=== PATIENT | male | born 1950 | race Caucasian/White ===

== ENCOUNTER 2019-06-29 10:36 | Observation (INO) | payer MEDICARE ==
[2019-06-23 11:24] LABS: CLARITY,URINE CLEAR (Clear); COLOR,URINE YELLOW (Yellow); GLUCOSE, URINE NEGATIVE (Neg); KETONES,URINE NEGATIVE (Neg); LEUKOCYTE ESTERASE ,URINE NEGATIVE (Neg); NITRITES, URINE NEGATIVE (Neg); OCCULT BLOOD,URINE NEGATIVE (Neg); PH,URINE 5.5 (4.8-8.0); PROTEIN,URINE NEGATIVE (Neg); UA COLLECTION TYPE CLN CATCH MIDSTREAM; UROBILINOGEN,URINE 0.2 E.U/dL (0.2-1.0)
[2019-06-23 11:26] LABS: BASOPHILS % (AUTO) 0.6 % (0-1); EOSINOPHILS # (AUTO) 0.1 X10'3 (0-0.9); EOSINOPHILS % (AUTO) 1.9 % (0-6); LYMPHOCYTES # (AUTO) 1.4 X10'3 (1.1-4.8); MEAN CORPUSCULAR HEMOGLOBIN 31.8 PG (27.0-31.0); MEAN CORPUSCULAR HGB CONC 33.5 g/dL (33.0-36.5); MEAN CORPUSCULAR VOLUME 94.7 FL (78-98); MEAN PLATELET VOLUME 7.6 FL (7.4-10.4); MONOCYTES # (AUTO) 0.7 X10'3 (0-0.9); MONOCYTES % (AUTO) 8.8 % (2-12); NEUTROPHILS # (AUTO) 5.5 X10'3 (1.8-7.7); NEUTROPHILS % (AUTO) 70.7 % (42-75); PRE OP HEMATOCRIT 45.2 % (42.0-52.0); PRE OP HEMOGLOBIN 15.2 g/dL (14.0-17.9); PRE OP PLATELET COUNT 251 X10'3 (140-440); RED BLOOD COUNT 4.77 X10'6 (4.70-6.10); RED CELL DISTRIBUTION WIDTH 14.3 % (11.5-14.5)
[2019-06-23 11:34] LABS: PARTIAL THROMBOPLASTIN TIME 29 SECONDS (22-32); PRE OP PROTIME 10.2 SECONDS (9.0-12.0)
[2019-06-23 11:37] LABS: ALBUMIN 3.3 G/DL (3.4-5.0); ALBUMIN/GLOBULIN RATIO 0.8 (1.1-1.5); ALKALINE PHOSPHATASE 70 IU/L (46-116); BLOOD UREA NITROGEN 19 MG/DL (7-18); BUN/CREATININE RATIO 17.8 (5.4-32.0); CALCIUM 8.7 MG/DL (8.5-10.1); CHLORIDE 105 MMOL/L (99-107); CREATININE 1.07 MG/DL (0.60-1.10); PRE OP ALT 25 U/L (30-65); PRE OP ANION GAP 7 (8-16); PRE OP AST 24 U/L (10-37); PRE OP BILIRUB, TOTAL 0.4 MG/DL (0.0-1.0); PRE OP GLUCOSE 92 MG/DL (70-104); PRE OP POTASSIUM 3.9 MMOL/L (3.4-5.1); PRE OP SODIUM 139 MMOL/L (135-145); TOTAL CARBON DIOXIDE 27.5 MMOL/L (24-32); TOTAL PROTEIN 7.2 G/DL (6.4-8.2); eGFR 69 ML/MIN
[~2019-06-29] VITALS: Ht 180.3 cm; Wt 79.7 kg
[2019-06-29] VITALS (26 sets, daily range): BP systolic 104–151; BP diastolic 60–90
[~2019-06-29 10:36] MED LIST: ALBU2.5V12 NEB; BUDE10.2 INH; CETI10TA18 PO; FLUT16SP11 BOTHNARES; GABA-532 PO; GENTAMICIN IV ONE; NORMAL SALINE IV ONE; OMEP40CA13 PO; albuterol 2.5 MG/3 ML nebule NEB ONE; clindamycin-Cleocin 900mg/D5W 50 ML IV ONE; famotidine 20mg tablet PO ONE; ringers solution, lacted 1,000 ML IV SCH
[2019-06-29] MEDS ORDERED: BUPIVAcaine/PF 2.5 mg/ml (0.25%) 30ml vial ONE ×2 (13:45→16:03)
[2019-06-29] MEDS ORDERED: clindamycin phosphate 150mg/ml inj. ONE (13:47)
[2019-06-29] MEDS ORDERED: sevoflurane 250ml liquid IH ONE (14:50)
[2019-06-29] MEDS ORDERED: fentaNYL/PF 50MCG/1 ML 2ML syringe ONE (14:58)
[2019-06-29] MEDS ORDERED: midazolam 2 mg/2 ml injection ONE (15:03)
[2019-06-29] MEDS ORDERED: ringers solution, lacted 1,000 ML IV SCH (15:08)
[2019-06-29] MEDS ORDERED: morphine 4 MG/ML inj SYRINge IV PRN (15:10)
[2019-06-29] MEDS ORDERED: acetaminophen 1,000mg/100ml IV 100 ML IV PRN (15:10)
[2019-06-29] MEDS ORDERED: ondansetron/PF 4mg/2ml inj IV PRN ×2 (15:10→20:20)
[2019-06-29] MEDS ORDERED: meperidine/PF 25mg/ml syringe IV PRN ×2 (15:10)
[2019-06-29] MEDS ORDERED: morphine 2 MG/ML inj. syringe IV PRN (15:10)
[2019-06-29] MEDS ORDERED: labetalol 20mg/4ml (5mg/ml) syringe IV PRN (15:10)
[2019-06-29] MEDS ORDERED: proCHLORperazine 10 MG/2 ml inj IV PRN (15:10)
[2019-06-29] MEDS ORDERED: hydrALAZINE 20mg/ml inj. IV PRN (15:10)
[2019-06-29] MEDS ORDERED: propofol inj 20 ML IV ONE (15:23)
[2019-06-29] MEDS ORDERED: dexamethasone sod phosphate 4mg/ml inj. ONE (15:23)
[2019-06-29] MEDS ORDERED: LIDOcaine 2% (20mg/ml) 5ml vial ONE (15:23)
[2019-06-29] MEDS ORDERED: ondansetron/PF 4mg/2ml inj ONE (15:23)
[2019-06-29] MEDS ORDERED: rocuronium 10mg/ml inj IV ONE (15:23)
[2019-06-29] MEDS ORDERED: morphine 10mg/ml inj. ONE (15:58)
[2019-06-29] MEDS ORDERED: ePHEDrine 50MG/ML INJ. ONE (15:59)
[2019-06-29] MEDS ORDERED: ketorolac trometh. 30mg/ml inj. ONE (15:59)
[2019-06-29] MEDS ORDERED: neostigmine methylsulfate 1 MG/ML 10ml vial ONE (16:10)
[2019-06-29] MEDS ORDERED: glycopyrrolate 0.2mg/ml inj ONE (16:10)
--- NOTE | 2019-06-29 16:19 | NUR ---
Received from OR via [facility] , accompanied by Anesthesiologist DAVID and report given by Anesthesiolgist. PATIENT WITH 20G PIV IN LEFT UE RUNNING LR AT 100. 10L MASK ON WITH 100% SATURATIONS. VS. 4 ABDOMINAL LAP SITES AND BANDAIDS PRESENT- ALL CDI. WILL CONTINUE TO ASSESS. Addendum: 06/29/19 at 1625 by Eduard Myers RN, RN Amended: Links added.
[2019-06-29] MEDS: meperidine/PF 25mg/ml syringe IV PRN ×2 (16:36→17:41)
[2019-06-29] MEDS ORDERED: albuterol 2.5 MG/3 ML nebule NEB ONE (16:50)
--- NOTE | 2019-06-29 19:45 | NUR ---
Patient in room . I have received report from ROSEANN Chapa and had the opportunity to ask questions and assume patient care.
[2019-06-29] MEDS ORDERED: albuterol 2.5 MG/3 ML nebule NEB PRN (19:50)
[2019-06-29] MEDS: budesonide 0.5mg/2ml UD nebule IH SCH (20:00)
[2019-06-29] MEDS ORDERED: HYDROcodone/acetaminophen 10/325mg tab PO PRN (20:20)
[2019-06-29] MEDS ORDERED: albumin (Human) 5% 250ml 250 ML IV ONE ×3 (20:20)
--- NOTE | 2019-06-29 20:49 | NUR ---
Patient has met criteria for transfer to floor. Patient vss. Pain at a tolerable level. Transferred via bed to room where they were hooked to vitals and RN notified patient has arrived. Bed low, call light within reach, 2-3 rails up, vss, belongings placed in room. Care turned over to ROSEANN DE GUZMAN. PHONE, READERS AND SHORTS WITH SLIPPERS. Addendum: 06/29/19 at 2101 by Eduard Cao - ROSEANN WHITFIELD Amended: Links added.
[2019-06-29] MEDS: potassium CL 20mEq in D5-1/2NS 1,000 ML IV SCH (20:55)
[2019-06-29] MEDS ORDERED: pantoprazole 40mg Tablet.DR PO SCH (21:00)
[2019-06-29] MEDS ORDERED: cetirizine 10mg tablet PO SCH (21:00)
[2019-06-29] MEDS: gabapentin 300mg capsule PO SCH (22:06)
[2019-06-30] VITALS: BP 127/89
--- NOTE | 2019-06-30 06:39 | NUR ---
Problems reprioritized. Patient report given, questions answered & plan of care reviewed with ROSEANN Arredondo.
[2019-06-30 07:00] VITALS: BP 94/57
[2019-06-30] MEDS: potassium CL 20mEq in D5-1/2NS 1,000 ML IV SCH (07:59)
[2019-06-30] MEDS ORDERED: vancomycin/NS 1 GM ADD-VANTAGE 250 ML IV SCH (08:00)
[2019-06-30] MEDS ORDERED: fluticasone nasal spray 16GM bottle NS SCH (08:00)
[2019-06-30] MEDS: gabapentin 300mg capsule PO SCH (08:00)
[2019-06-30] MEDS: budesonide 0.5mg/2ml UD nebule IH SCH (08:56)
[2019-06-30] MEDS ORDERED: HYDR-4353 PO (10:05)
--- NOTE | 2019-06-30 10:18 | NUR ---
DISCONTINUED FC, PT TOLERATED WELL
--- NOTE | 2019-06-30 12:00 | NUR ---
PATIENT DISCHARGED SAFELY WITH , ALL BELONGINGS IN POSSESSION. PAIN PRESCRIPTION GIVEN TO PATIENT. PT VERBALIZES UNDERSTANDING OF ALL DC INSTRUCTIONS.
== END 2019-06-30 12:10 | disposition home or self-care (01) ==
LOC: PAS 10:36 → SUR 3N 20:20
PROVIDERS: ADMIT Surgery; ATTEND Surgery
DX: K43.2 Incisional hernia without obstruction or gangrene (principal); Z03.818 Encounter for observation for suspected exposure to other biological agents ruled out; Z90.49 Acquired absence of other specified parts of digestive tract
CPT/HCPCS: 36415; 49654; 71046; 80053; 81003; 82948; 85025; 85610; 85730; 86885; 86900; 86901; 87635; 94640; 94760; 96365; 96366; 96367; 96375; 96376; C1758; C1781; G0378; J1100; J1580; J1885; J2001; J2175; J2250; J2270; J2405; J2704; J2710; J3010; J3370; J3480; J3490; J7120; P9045; A4215; A4618; A7000; J7626